=== PATIENT | male | born 1980 | race Caucasian/White ===

== ENCOUNTER 2016-11-30 11:44 | Emergency (ER) | payer MEDICAID ==
[2016-11-30 11:54] VITALS: TEMP 98.4
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
[2016-11-30 13:53] VITALS: BP 112/84; PULSE 76; RESP 18; O2SAT 93
== END 2016-11-30 13:52 | disposition home or self-care (01) ==
LOC: EEVIPCON 11:44
DX: M54.9 Dorsalgia, unspecified (principal); F17.200 Nicotine dependence, unspecified, uncomplicated